=== PATIENT | male | born 1975 ===

== ENCOUNTER 2018-09-02 06:54 | Observation (INO) | payer OTHER ==
[2018-09-02] MEDS ORDERED: Sodium Chloride 0.9% 1,000 ML IV ONE (07:18)
[2018-09-02] MEDS ORDERED: Sodium Chloride 0.9% 1,000 ML ONE (07:23)
[2018-09-02 07:26] LABS: BASO # 0.1 K/uL (0.0-0.2); BASO % 0.7 % (0.0-2.0); EOS # 0.3 K/uL (0.0-0.7); EOS % 2.8 % (0.0-4.0); HEMOGLOBIN 15.7 g/dL (12.0-18.0); LYMPH # 4.3 K/uL (1.0-4.3); LYMPH % 43.3 % (20.0-40.0); MEAN CELL VOLUME 87.1 fL (80.0-94.0); MEAN CORPUSCULAR HEMOGLOBIN 29.1 pg (27.0-31.0); MEAN CORPUSCULAR HGB CONC 33.4 g/dL (33.0-37.0); MEAN PLATELET VOLUME 9.7 fL (7.2-11.7); MONO # 0.7 K/uL (0.0-0.8); MONO % 6.7 % (0.0-10.0); NEUT # 4.7 K/uL (1.8-7.0); NEUT % 46.5 % (50.0-75.0); RBC 5.41 Mil/uL (4.40-5.90); RED CELL DISTRIBUTION WIDTH 13.4 % (11.5-14.5)
[2018-09-02 07:46] LABS: URINE BILIRUBIN NEGATIVE (NEGATIVE); URINE BLOOD NEGATIVE (NEGATIVE); URINE CLARITY Clear (Clear); URINE COLOR Yellow (YELLOW); URINE GLUCOSE (UA) NORMAL (Normal); URINE LEUKOCYTE ESTERASE NEG Leu/uL (Negative); URINE PROTEIN NEGATIVE (NEGATIVE); URINE UROBILINOGEN NORMAL mg/dL (0.2-1.0)
--- NOTE | 2018-09-02 07:46 | C.PDOC ---
History Of Present Illness 43 year old male presents to the ED complaining of LLQ pain radiating to low back that began 30 minutes [employer] T[employer]ATING [employer]. 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 Reports pain is constant, throbbing and is associated with nausea. Denies any vomiting, diarrhea, dysuria, or hematuria. States he feels like he has to strain to urinate. Denies presentation of similar symptoms in the past. Time Seen by Provider: 09/02/18 07:17 Chief Complaint (Nursing): Abdominal Pain History Per: Patient History/Exam Limitations: no limitations Onset/Duration Of Symptoms: Mins (30), Persistent Current Symptoms Are (Timing): Still Present Location Of Pain/Discomfort: LLQ Radiation Of Pain To:: Back Associated Symptoms: denies: Fever, Chills, Nausea, Vomiting, Diarrhea Past Medical History Reviewed: Historical Data, Nursing Documentation, Vital Signs Vital Signs: Last Vital Signs Temp 98.2 F 09/02/18 06:54 Pulse 74 09/02/18 06:54 Resp 16 09/02/18 06:54 BP 179/82 H 09/02/18 06:54 Pulse Ox 100 09/02/18 06:54 Primary Care Provider: FAMILY PROVIDER,NO - Medical History PMH: Hypercholesterolemia Other Surgeries: Hx of surgeries Family History: States: No Known Family Hx - Social History Hx Alcohol Use: Yes Hx Substance Use: No - Immunization History Hx Tetanus Toxoid Vaccination: No Hx Influenza Vaccination: No Hx Pneumococcal Vaccination: No Review Of Systems Except As Marked, All Systems Reviewed And Found Negative. Constitutional: Negative for: Fever, Chills Gastrointestinal: Positive for: Abdominal Pain. Negative for: Nausea, Vomiting, Diarrhea Genitourinary: Negative for: Dysuria, Hematuria Musculoskeletal: Positive for: Back Pain Physical Exam - Physical Exam Appears: Non-toxic, No Acute Distress, Other (appears in moderate to severe pain ) Skin: Warm, Dry, No Rash Head: Normacephalic Eye(s): bilateral: Normal Inspection Neck: Supple Chest: Symmetrical Cardiovascular: Rhythm Regular Respiratory: Normal Breath Sounds, No Rales, No Rhonchi, No Wheezing Gastrointestinal/Abdominal: Bowel Sounds, Soft, Tenderness ((+) LLQ TTP), No Distention, No Guarding, No Rebound Back: Normal Inspection, No CVA Tenderness Male Genital: Normal Inspection, No Testicular Tenderness, No Testicular Swelling, No Inguinal Tenderness, No Inguinal Swelling, No Scrotal Swelling Extremity: Bilateral: Atraumatic, Normal Color And Temperature, Normal ROM Neurological/Psych: Oriented x3, Normal Speech Gait: Steady ED Course And Treatment - Laboratory Results Result Diagrams: 09/02/18 07:10 09/02/18 07:10 O2 Sat by Pulse Oximetry: 100 (RA) Pulse Ox Interpretation: Normal - Other Rad CT ABD/PELVIS NO CONTRAST X-Ray: Read By Radiologist Interpretation: Accession No. : [id number]. Patient Name / ID : MAXIMUS Ramos / [id number]. Exam Date : 09/02/2018 08:14:13 ( Approved ). Study Comment : Sex / Age : M / 43Y. Creator : Deshaun Lugo. Dictator : Emi Rivera MD. Casino Games Dealer : Environmental Health Technician : Emi Ochoa MD. Approver2 : Report Date : 09/02/2018 08:23:41. My Comment : . PROCEDURE: CT Abdomen and Pelvis without Oral or IV contrast. HISTORY: llq pain r/o kidney stone. COMPARISON: None available. TECHNIQUE: Contiguous axial images of the abdomen and pelvis. No oral or IV contrast administered. Coronal and Sagittal reformats generated and reviewed. Radiation dose: Total exam DLP = 1111.92 mGy-cm. This CT exam was performed using one or more of the following dose reduction techniques: Automated exposure control, adjustment of the mA and/or kV according to patient size, and/or use of iterative reconstruction technique. FINDINGS: There is limited evaluation of the solid organs without the administration of IV contrast. LOWER THORAX: Bibasilar atelectasis/infiltrates. There is no visible pleural effusion or pneumothorax. Small hiatal hernia/distal esophageal wall thickening. LIVER: Unremarkable unenhanced appearance. GALLBLADDER AND BILE DUCTS: Unremarkable unenhanced appearance. PANCREAS: Unremarkable unenhanced appearance. SPLEEN: Unremarkable unenhanced appearance. ADRENALS: Unremarkable unenhanced appear ance. KIDNEYS AND URETERS: No hydronephrosis or obstructing renal calculus. BLADDER: The urinary bladder appears unremarkable. REPRODUCTIVE: The prostate gland measures approximately 3.2 x 4.5 cm. APPENDIX: The appendix appears within normal limits of caliber. No secondary signs of acute appendicitis. BOWEL: The stomach is nondistended. Lack of oral contrast limits evaluation for bowel pathology. The bowel loops appear within normal limits of caliber without evidence of intestinal obstruction. Diverticulosis without CT evidence of acute diverticulitis. PERITONEUM: No significant free fluid. No definite free air. LYMPH NODES: No bulky lymphadenopathy identified. VASCULATURE: No significant atherosclerotic calcifications present. No aortic aneurysm. BONES: No acute osseous abnormality is detected. OTHER FINDINGS: 13 x 7 mm ovoid fatty density in the left pelvis with associated peripheral calcification. IMPRESSION: Diverticulosis without CT evidence of acute diverticulitis. No obstructing calculus or hydronephrosis identified. 13 x 7 mm ovoid fatty density in the left pelvis with associated peripheral calcification. Mild bibasilar atelectasis/infiltrates. Small hiatal hernia/distal esophageal wall thickening. Additional findings as above. - CT Scan/US CT PELVIS IV CONTRAST Other Rad Studies (CT/US): Read By Radiologist, Radiology Report Reviewed CT/US Interpretation: Accession No. : [id number]. Patient Name / ID : MAXIMUS MCCLAIN / [id number]. Exam Date : 09/02/2018 11:13:27 ( Approved ). Study Comment : Sex / Age : M / 43Y. Creator : Deshaun Lugo. Dictator : Emi Ochoa MD. Casino Games Dealer : Environmental Health Technician : Emi Ochoa MD. Approver2 : Report Date : 09/02/2018 11:22:44. My Comment : . Date of service: 09/02/2018. PROCEDURE: CT Pelvis with contrast. HISTORY: EVAL PELVIS WITH IV CONTRAST. COMPARISON: CT of the abdomen pelvis without IV contrast performed earlier the same day. TECHNIQUE: Contiguous axial images of the pelvis with contrast. Coronal and sagittal reformats generated. Contrast dose: 100 mL Visipaque 320 IV. Radiation dose: Total exam DLP = 692.9 mGy-cm. This CT exam was performed using one or more of the following dose reduction techniques: Automated exposure control, adjustment of the mA and/or kV according to patient size, and/or use of iterative reconstruction technique. FINDINGS: Visualized bowel loops appear within normal limits of caliber. Mild wall thickening of the rectosigmoid colon may be exaggerated by under distension; correlate clinically to exclude possibility of colitis. Included portions of the appendix appears unremarkable. Diverticulosis without CT evidence of acute diverticulitis. Small ovoid fatty density within the left pelvis measures approximately 13 x 7 mm with associated peripheral calcification, nonspecific. Finding may be related to small area of encapsulated fat necrosis. Urinary bladder appears thick walled; correlate with urinalysis. The prostate gland measures approximately 3.6 x 4.2 cm. IMPRESSION: Mild wall thickening of the rectosigmoid colon may be exaggerated by under distension; correlate clinically to exclude possibility of colitis. Diverticulosis without CT evidence of acute diverticulitis. Small ovoid fatty density within the left pelvis measures approximately 13 x 7 mm with associated peripheral calcification, nonspecific. Finding may be related to small area of encapsulated fat necrosis. Urinary bladder appears thick walled; correlate with urinalysis. Progress Note: Blood work, UA, CT abd/pelvis without contrast ordered and reviewed - to r/o kidney stone. Patient given IV NS bolus, IV toradol. Patient continued to have pain - IV morphine given. Repeat CT with IV contrast of pelvis done, shows thickened colon/bladder and small area of possible fat necrosis - ? etiology of pain. 1:15pm- Patient tearful and in pain again, IV morphine ordered. Discussed patient with medicine combination man Dr. Bassam Gamboa, agrees with admission for intractable LLQ/low back pain, fat necrosis. Surgery consult for Dr. Abilio chirinos and president & founder spoken with - will come eval. Disposition - Disposition Disposition: HOSPITALIZED Disposition Time: 13:09 Condition: STABLE - Scribe Statement The provider has reviewed the documentation as recorded by the Scribmahnaz Talley All medical record entries made by the Scribe were at my direction and personally dictated by me. I have reviewed the chart and agree that the record accurately reflects my personal performance of the history, physical exam, medical decision making, and the department course for this patient. I have also personally directed, reviewed, and agree with the discharge instructions and disposition.
[2018-09-02 08:00] LABS: ALB/GLOB RATIO 1.3 (1.0-2.1); ALBUMIN 4.7 g/dL (3.5-5.0); ALT/SGPT 33 U/L (21-72); AST/SGOT 33 U/L (17-59); BLOOD UREA NITROGEN 20 mg/dL (9-20); CALCIUM 9.5 mg/dl (8.6-10.4); GFR NON-AFRICAN AMERICAN > 60; LIPASE 143 U/L (23-300)
--- NOTE | 2018-09-02 08:52 | CT ---
PROCEDURE: CT Abdomen and Pelvis without Oral or IV contrast. HISTORY: llq pain r/o kidney stone COMPARISON: None available. TECHNIQUE: Contiguous axial images of the abdomen and pelvis. No oral or IV contrast administered. Coronal and Sagittal reformats generated and reviewed. Radiation dose: Total exam DLP = 1111.92 mGy-cm. This CT exam was performed using one or more of the following dose reduction techniques: Automated exposure control, adjustment of the mA and/or kV according to patient size, and/or use of iterative reconstruction technique. FINDINGS: There is limited evaluation of the solid organs without the administration of IV contrast. LOWER THORAX: Bibasilar atelectasis/infiltrates. There is no visible pleural effusion or pneumothorax. Small hiatal hernia/distal esophageal wall thickening. LIVER: Unremarkable unenhanced appearance. GALLBLADDER AND BILE DUCTS: Unremarkable unenhanced appearance. PANCREAS: Unremarkable unenhanced appearance. SPLEEN: Unremarkable unenhanced appearance. ADRENALS: Unremarkable unenhanced appearance. KIDNEYS AND URETERS: No hydronephrosis or obstructing renal calculus. BLADDER: The urinary bladder appears unremarkable. REPRODUCTIVE: The prostate gland measures approximately 3.2 x 4.5 cm. APPENDIX: The appendix appears within normal limits of caliber. No secondary signs of acute appendicitis. BOWEL: The stomach is nondistended. Lack of oral contrast limits evaluation for bowel pathology. The bowel loops appear within normal limits of caliber without evidence of intestinal obstruction. Diverticulosis without CT evidence of acute diverticulitis. PERITONEUM: No significant free fluid. No definite free air. LYMPH NODES: No bulky lymphadenopathy identified. VASCULATURE: No significant atherosclerotic calcifications present. No aortic aneurysm. BONES: No acute osseous abnormality is detected. OTHER FINDINGS: 13 x 7 mm ovoid fatty density in the left pelvis with associated peripheral calcification. IMPRESSION: Diverticulosis without CT evidence of acute diverticulitis. No obstructing calculus or hydronephrosis identified. 13 x 7 mm ovoid fatty density in the left pelvis with associated peripheral calcification. Mild bibasilar atelectasis/infiltrates. Small hiatal hernia/distal esophageal wall thickening. Additional findings as above.
[2018-09-02] MEDS ORDERED: Morphine 4 MG/ML VIAL ONE ×3 (10:00→13:24)
[2018-09-02] MEDS ORDERED: Iodixanol 320 MG/ML 100 ML BOTTLE IV ONE (11:23)
--- NOTE | 2018-09-02 12:07 | CT ---
Date of service: 09/02/2018 PROCEDURE: CT Pelvis with contrast HISTORY: EVAL PELVIS WITH IV CONTRAST COMPARISON: CT of the abdomen pelvis without IV contrast performed earlier the same day. TECHNIQUE: Contiguous axial images of the pelvis with contrast. Coronal and sagittal reformats generated. Contrast dose: 100 mL Visipaque 320 IV Radiation dose: Total exam DLP = 692.9 mGy-cm. This CT exam was performed using one or more of the following dose reduction techniques: Automated exposure control, adjustment of the mA and/or kV according to patient size, and/or use of iterative reconstruction technique. FINDINGS: Visualized bowel loops appear within normal limits of caliber. Mild wall thickening of the rectosigmoid colon may be exaggerated by under distension; correlate clinically to exclude possibility of colitis. Included portions of the appendix appears unremarkable. Diverticulosis without CT evidence of acute diverticulitis. Small ovoid fatty density within the left pelvis measures approximately 13 x 7 mm with associated peripheral calcification, nonspecific. Finding may be related to small area of encapsulated fat necrosis. Urinary bladder appears thick walled; correlate with urinalysis. The prostate gland measures approximately 3.6 x 4.2 cm. IMPRESSION: Mild wall thickening of the rectosigmoid colon may be exaggerated by under distension; correlate clinically to exclude possibility of colitis. Diverticulosis without CT evidence of acute diverticulitis. Small ovoid fatty density within the left pelvis measures approximately 13 x 7 mm with associated peripheral calcification, nonspecific. Finding may be related to small area of encapsulated fat necrosis. Urinary bladder appears thick walled; correlate with urinalysis.
[2018-09-02 13:48] LABS: VENOUS BLOOD GAS PCO2 32 mmHg (40-60); VENOUS BLOOD GAS PO2 43 mm/Hg (30-55); VENOUS BLOOD PH 7.45 (7.32-7.43)
--- NOTE | 2018-09-02 14:33 | CP.PCM.CON ---
<Reynaldo Greco - Last Filed: 09/02/18 14:38> History of Present Illness - History of Present Illness History of Present Illness: Surgery Consult Note for Dr. Santoro Consult: Left sided abdominal pain HPI: 43 year old male with a past medical history of hyperlipidemia, who presents to [facility] with sudden, new onset left flank pain that radiates anteriorly. Initially thought to be nephrolithiasis however CT imaging shows no stones or dilation of ureters. Patient states the pain is sharp, throbbing and constant. 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 He had a mild episode of pain in the area last week which resolved on its own. Patient states no aggravating or alleviating factors. Admits to nausea due to pain medication given in ER. Denies fever, chills, vomiting, diarrhea, BRBPR, melena, hematemesis, SOB, chest pain, hematuria, dysuria, or difficulty with urination. No sick contacts. No recent travel. PMH: HLD PSH: Back surgery 5 months ago FH: Noncontributory SH: Denies tobacco alcohol or drug use. 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 Patient is from [place], [place]. ALL: NKDA Meds: See MAR Review of Systems - Constitutional Constitutional: absent: Chills, Fever, Headache, Night Sweats, Weight Loss, Weakness - EENT Eyes: absent: Blurred Vision, Change in Vision Nose/Mouth/Throat: absent: Nasal Congestion, Nasal Discharge - Cardiovascular Cardiovascular: absent: Chest Pain, Dyspnea, Palpitations - Respiratory Respiratory: absent: Cough, Dyspnea - Gastrointestinal Gastrointestinal: Abdominal Pain. absent: Belching, Bloating, Change in Bowel Habits, Constipation, Cramping, Diarrhea, Heartburn, Hematemesis, Melena, Nausea, Vomiting - Genitourinary Genitourinary: Flank Pain. absent: Change in Urinary Stream, Difficulty Urinating, Dysuria, Hematuria, Pyuria, Freq UTI, Hx Renal/Bladder Calculi, Hx /Renal Surgery - Reproductive: Male Reproductive:Male: Pelvic Pain - Musculoskeletal Musculoskeletal: Back Pain. absent: Neck Pain - Integumentary Integumentary: absent: Bleeding Lesions, Changing Lesions - Neurological Neurological: absent: Confusion, Numbness - Psychiatric Psychiatric: absent: Anxiety, Depression Past Patient History - Infectious Disease Hx of Infectious Diseases: None - Past Social History Smoking Status: Never Smoked - CARDIAC Hx Hypercholesterolemia: Yes - PSYCHIATRIC Hx Substance Use: No - SURGICAL HISTORY Hx Surgeries: Yes Other/Comment: lower back sx 5mos ago - ANESTHESIA Hx Anesthesia: Yes Meds Allergies/Adverse Reactions: Allergies Allergy/AdvReac Type Severity Reaction Status Date / Time No Known Allergies Allergy Unverified 09/02/18 06:57 - Medications Medications: Current Medications Morphine Sulfate (Morphine) 4 mg IV Q4 PRN PRN Reason: pain Physical Exam - Constitutional Appears: Non-toxic, In Acute Distress - Head Exam Head Exam: ATRAUMATIC, NORMAL INSPECTION, NORMOCEPHALIC - Eye Exam Eye Exam: EOMI Pupil Exam: PERRL - ENT Exam ENT Exam: Mucous Membranes Moist - Respiratory Exam Respiratory Exam: NORMAL BREATHING PATTERN. absent: Wheezes, Respiratory Distress - Cardiovascular Exam Cardiovascular Exam: REGULAR RHYTHM, +S1, +S2 - GI/Abdominal Exam GI & Abdominal Exam: Normal Bowel Sounds, Soft, Tenderness. absent: Distended, Guarding, Rebound, Rigid Additional comments: left flank and lower quadrant tenderness to palpation - Extremities Exam Extremities exam: Positive for: normal inspection, pedal pulses present - Back Exam Back exam: paraspinal tenderness. absent: CVA tenderness (L), CVA tenderness (R), rash noted - Neurological Exam Neurological exam: Alert, Oriented x3 - Psychiatric Exam Psychiatric exam: Normal Affect, Normal Mood - Skin Skin Exam: Dry, Intact, Normal Color, Warm Results - Vital Signs Recent Vital Signs: Last Vital Signs Temp 98.3 F 09/02/18 14:16 Pulse 74 09/02/18 14:16 Resp 16 09/02/18 14:16 BP 148/82 09/02/18 14:16 Pulse Ox 98 09/02/18 14:16 - Labs Result Diagrams: 09/02/18 07:10 09/02/18 07:10 Labs: Laboratory Results - last 24 hr 09/02/18 09/02/18 09/02/18 07:10 07:10 07:24 WBC 10.0 RBC 5.41 Hgb 15.7 Hct 47.1 MCV 87.1 MCH 29.1 MCHC 33.4 RDW 13.4 Plt Count 253 MPV 9.7 Neut % (Auto) 46.5 L Lymph % (Auto) 43.3 H [place] % (Auto) 6.7 Eos % (Auto) 2.8 Baso % (Auto) 0.7 Neut # (Auto) 4.7 Lymph # (Auto) 4.3 [place] # (Auto) 0.7 Eos # (Auto) 0.3 Baso # (Auto) 0.1 pO2 VBG pH VBG pCO2 VBG HCO3 VBG Total CO2 VBG O2 Sat (Calc) VBG Base Excess VBG Potassium Glucose Lactate Sodium 140 Potassium 3.5 L Chloride 105 Carbon Dioxide 21 L Anion Gap 18 BUN 20 Creatinine 1.1 Est GFR ( Amer) > 60 Est GFR (Non-Af Amer) > 60 Random Glucose 106 Calcium 9.5 Total Bilirubin 0.8 AST 33 ALT 33 Alkaline Phosphatase 91 Total Protein 8.4 H Albumin 4.7 Globulin 3.7 Albumin/Globulin Ratio 1.3 Lipase 143 Venous Blood Potassium Urine Color Yellow Urine Clarity Clear Urine pH 5.0 Ur Specific [place] 1.023 Urine Protein Negative Urine Glucose (UA) Normal Urine Ketones Negative Urine Blood Negative Urine Nitrate Negative Urine Bilirubin Negative Urine Urobilinogen Normal Ur Leukocyte Esterase Neg Urine WBC (Auto) 1 Urine RBC (Auto) < 1 09/02/18 13:35 WBC RBC Hgb Hct MCV MCH MCHC RDW Plt Count MPV Neut % (Auto) Lymph % (Auto) [place] % (Auto) Eos % (Auto) Baso % (Auto) Neut # (Auto) Lymph # (Auto) [place] # (Auto) Eos # (Auto) Baso # (Auto) pO2 43 VBG pH 7.45 H VBG pCO2 32 L VBG HCO3 23.7 VBG Total CO2 23.2 VBG O2 Sat (Calc) 85.5 H VBG Base Excess -1.0 L VBG Potassium 3.9 Glucose 110 Lactate 1.2 Sodium 136.0 Potassium Chloride 107.0 Carbon Dioxide Anion Gap BUN Creatinine Est GFR ( Amer) Est GFR (Non-Af Amer) Random Glucose Calcium Total Bilirubin AST ALT Alkaline Phosphatase Total Protein Albumin Globulin Albumin/Globulin Ratio Lipase Venous Blood Potassium 3.9 Urine Color Urine Clarity Urine pH Ur Specific [place] Urine Protein Urine Glucose (UA) Urine Ketones Urine Blood Urine Nitrate Urine Bilirubin Urine Urobilinogen Ur Leukocyte Esterase Urine WBC (Auto) Urine RBC (Auto) Assessment & Plan - Assessment and Plan (Free Text) Assessment: 43M w/ left flank and lower quadrant abdominal pain Plan: CTAP shows ovoid fatty density in pelvis, diverticulosis Pelvic CT shows possible encapsulated fat necrosis Pain control Antiemetics PRN Warm compresses Serial abdominal exams Monitor for clinical improvement D/w Dr. Doherty PGY1 <Wally Cohn N - Last Filed: 09/03/18 12:21> Meds - Medications Medications: Current Medications Enoxaparin Sodium (Lovenox) 40 mg SC DAILY [facility] Last Admin: 09/03/18 10:29 Dose: 40 mg Sodium Chloride (Sodium Chloride 0.9%) 1,000 mls @ 125 mls/hr IV .Q8H [facility] Last Admin: 09/03/18 06:59 Dose: 125 mls/hr Piperacillin Sod/Tazobactam Sod (Zosyn 3.375 Gm Iv Premix) 3.375 gm in 50 mls @ 100 mls/hr IVPB Q6H [facility]; Protocol Last Admin: 09/03/18 11:56 Dose: 100 mls/hr Morphine Sulfate (Morphine) 6 mg IV Q4 PRN PRN Reason: pain Ondansetron HCl (Zofran Inj) 4 mg IVP Q6H PRN PRN Reason: Nausea/Vomiting Last Admin: 09/03/18 08:25 Dose: 4 mg Pantoprazole Sodium (Protonix Ec Tab) 40 mg PO DAILY [facility] Last Admin: 09/03/18 10:30 Dose: 40 mg Pneumococcal Polyvalent Vaccine (Pneumovax 23 Vaccine) 0.5 ml IM .ONCE ONE Stop: 09/04/18 10:01 Potassium Chloride (Klor-Con 10) 10 meq PO BRK [facility] Last Admin: 09/03/18 08:26 Dose: 10 meq Rosuvastatin Calcium (Crestor) 5 mg PO HS [facility] Last Admin: 09/02/18 21:51 Dose: 5 mg Tamsulosin HCl (Flomax) 0.4 mg PO DAILY [facility] Last Admin: 09/03/18 11:34 Dose: 0.4 mg Results - Vital Signs Recent Vital Signs: Last Vital Signs Temp 98.1 F 09/03/18 07:00 Pulse 72 09/03/18 07:00 Resp 20 09/03/18 07:00 BP 144/79 09/03/18 07:00 Pulse Ox 95 09/03/18 07:00 - Labs Result Diagrams: 09/03/18 08:09 09/03/18 08:09 Labs: Laboratory Results - last 24 hr 09/02/18 09/03/18 09/03/18 13:35 08:09 08:09 WBC 14.9 H RBC 4.80 Hgb 14.2 Hct 40.7 MCV 84.8 D MCH 29.7 MCHC 35.0 RDW 13.3 Plt Count 219 MPV 10.6 Neut % (Auto) 79.4 H Lymph % (Auto) 12.6 L [place] % (Auto) 7.5 Eos % (Auto) 0.2 Baso % (Auto) 0.3 Neut # (Auto) 11.8 H Lymph # (Auto) 1.9 [place] # (Auto) 1.1 H Eos # (Auto) 0.0 Baso # (Auto) 0.0 pO2 43 VBG pH 7.45 H VBG pCO2 32 L VBG HCO3 23.7 VBG Total CO2 23.2 VBG O2 Sat (Calc) 85.5 H VBG Base Excess -1.0 L VBG Potassium 3.9 Sodium 136.0 136 Chloride 107.0 103 Glucose 110 Lactate 1.2 Potassium 4.0 Carbon Dioxide 24 Anion Gap 13 BUN 16 Creatinine 1.3 Est GFR ( Amer) > 60 Est GFR (Non-Af Amer) > 60 Random Glucose 98 Calcium 8.9 Total Bilirubin 1.5 H AST 67 H D ALT 67 Alkaline Phosphatase 72 Total Protein 7.0 Albumin 3.9 Globulin 3.1 Albumin/Globulin Ratio 1.3 Prostate Specific Ag 0.691 Venous Blood Potassium 3.9 Assessment & Plan - Assessment and Plan (Free Text) Plan: All medical record entries made by the resident were at my direction. I have reviewed the chart and agree that the record accurately reflects my personal performance of the history, physical exam, and medical decision making.
[2018-09-02] MEDS: Sodium Chloride 0.9% 1,000 ML IV SCH ×2 (15:30→22:06)
[2018-09-02 15:56] VITALS: RESP 20
[2018-09-02] MEDS: Morphine 4 MG/ML VIAL IV PRN (17:57)
[2018-09-02] MEDS ORDERED: Potassium Chloride 20 mEq ER Tab PO ONE (18:37)
--- NOTE | 2018-09-02 23:21 | CP.PCM.HP ---
Past Patient History - Infectious Disease Hx of Infectious Diseases: None - Past Social History Smoking Status: Never Smoked - CARDIAC Hx Hypercholesterolemia: Yes - PSYCHIATRIC Hx Substance Use: No - SURGICAL HISTORY Hx Surgeries: Yes Other/Comment: lower back sx 5mos ago - ANESTHESIA Hx Anesthesia: Yes Meds Allergies/Adverse Reactions: Allergies Allergy/AdvReac Type Severity Reaction Status Date / Time No Known Allergies Allergy Unverified 09/02/18 06:57 Physical Exam - Constitutional Appears: Well - Head Exam Head Exam: ATRAUMATIC, NORMAL INSPECTION, NORMOCEPHALIC - Eye Exam Eye Exam: EOMI, Normal appearance, PERRL Pupil Exam: NORMAL ACCOMODATION, PERRL - ENT Exam ENT Exam: Mucous Membranes Moist, Normal Exam - Neck Exam Neck exam: Positive for: Normal Inspection - Respiratory Exam Respiratory Exam: Decreased Breath Sounds - Cardiovascular Exam Cardiovascular Exam: REGULAR RHYTHM, +S1, +S2 - GI/Abdominal Exam GI & Abdominal Exam: Diminished Bowel Sounds, Soft - Rectal Exam Rectal Exam: Deferred - Neurological Exam Neurological exam: Oriented x3 Results - Vital Signs Recent Vital Signs: Last Vital Signs Temp 98 F 09/02/18 19:34 Pulse 77 09/02/18 19:34 Resp 20 09/02/18 19:34 BP 144/81 09/02/18 19:34 Pulse Ox 97 09/02/18 19:34 - Labs Result Diagrams: 09/02/18 07:10 09/02/18 07:10 Labs: Laboratory Results - last 24 hr 09/02/18 09/02/18 09/02/18 07:10 07:10 07:24 WBC 10.0 RBC 5.41 Hgb 15.7 Hct 47.1 MCV 87.1 MCH 29.1 MCHC 33.4 RDW 13.4 Plt Count 253 MPV 9.7 Neut % (Auto) 46.5 L Lymph % (Auto) 43.3 H [place] % (Auto) 6.7 Eos % (Auto) 2.8 Baso % (Auto) 0.7 Neut # (Auto) 4.7 Lymph # (Auto) 4.3 [place] # (Auto) 0.7 Eos # (Auto) 0.3 Baso # (Auto) 0.1 pO2 VBG pH VBG pCO2 VBG HCO3 VBG Total CO2 VBG O2 Sat (Calc) VBG Base Excess VBG Potassium Glucose Lactate Sodium 140 Potassium 3.5 L Chloride 105 Carbon Dioxide 21 L Anion Gap 18 BUN 20 Creatinine 1.1 Est GFR ( Amer) > 60 Est GFR (Non-Af Amer) > 60 Random Glucose 106 Calcium 9.5 Total Bilirubin 0.8 AST 33 ALT 33 Alkaline Phosphatase 91 Total Protein 8.4 H Albumin 4.7 Globulin 3.7 Albumin/Globulin Ratio 1.3 Lipase 143 Venous Blood Potassium Urine Color Yellow Urine Clarity Clear Urine pH 5.0 Ur Specific [place] 1.023 Urine Protein Negative Urine Glucose (UA) Normal Urine Ketones Negative Urine Blood Negative Urine Nitrate Negative Urine Bilirubin Negative Urine Urobilinogen Normal Ur Leukocyte Esterase Neg Urine WBC (Auto) 1 Urine RBC (Auto) < 1 09/02/18 13:35 WBC RBC Hgb Hct MCV MCH MCHC RDW Plt Count MPV Neut % (Auto) Lymph % (Auto) [place] % (Auto) Eos % (Auto) Baso % (Auto) Neut # (Auto) Lymph # (Auto) [place] # (Auto) Eos # (Auto) Baso # (Auto) pO2 43 VBG pH 7.45 H VBG pCO2 32 L VBG HCO3 23.7 VBG Total CO2 23.2 VBG O2 Sat (Calc) 85.5 H VBG Base Excess -1.0 L VBG Potassium 3.9 Glucose 110 Lactate 1.2 Sodium 136.0 Potassium Chloride 107.0 Carbon Dioxide Anion Gap BUN Creatinine Est GFR ( Amer) Est GFR (Non-Af Amer) Random Glucose Calcium Total Bilirubin AST ALT Alkaline Phosphatase Total Protein Albumin Globulin Albumin/Globulin Ratio Lipase Venous Blood Potassium 3.9 Urine Color Urine Clarity Urine pH Ur Specific [place] Urine Protein Urine Glucose (UA) Urine Ketones Urine Blood Urine Nitrate Urine Bilirubin Urine Urobilinogen Ur Leukocyte Esterase Urine WBC (Auto) Urine RBC (Auto)
[2018-09-03] MEDS: Morphine 4 MG/ML VIAL IV PRN ×2 (02:33→08:25)
[2018-09-03] MEDS: Sodium Chloride 0.9% 1,000 ML IV SCH ×2 (06:59→14:37)
--- NOTE | 2018-09-03 07:20 | CP.PCM.PN ---
<Reynaldo Greco - Last Filed: 09/03/18 07:17> Subjective - Date & Time of Evaluation Date of Evaluation: 09/03/18 Time of Evaluation: 07:17 - Subjective Subjective: Surgery Progress Note for Dr. Santoro 43M seen and evaluated at bedside this morning. No acute events overnight. Patient continues to complain of left flank pain. No difficulty with urination, no hematuria, no dysuria, no pyuria. Denies f/c, n/v/d, SOB, CP. Objective - Vital Signs/Intake and Output Vital Signs (last 24 hours): Temp Pulse Resp BP Pulse Ox 98.1 F 70 20 139/70 96 09/03/18 00:42 09/03/18 00:42 09/03/18 00:42 09/03/18 00:42 09/03/18 03:30 Intake and Output: 09/03/18 09/03/18 06:59 18:59 Intake Total 2150 Balance 2150 - Medications Medications: Current Medications Enoxaparin Sodium (Lovenox) 40 mg SC DAILY [facility] Sodium Chloride (Sodium Chloride 0.9%) 1,000 mls @ 125 mls/hr IV .Q8H [facility] Last Admin: 09/03/18 06:59 Dose: 125 mls/hr Morphine Sulfate (Morphine) 4 mg IV Q4 PRN PRN Reason: pain Last Admin: 09/03/18 02:33 Dose: 4 mg Ondansetron HCl (Zofran Inj) 4 mg IVP Q6H PRN PRN Reason: Nausea/Vomiting Pantoprazole Sodium (Protonix Ec Tab) 40 mg PO DAILY [facility] Pneumococcal Polyvalent Vaccine (Pneumovax 23 Vaccine) 0.5 ml IM .ONCE ONE Stop: 09/04/18 10:01 Potassium Chloride (Klor-Con 10) 10 meq PO BRK [facility] Rosuvastatin Calcium (Crestor) 5 mg PO HS [facility] Last Admin: 09/02/18 21:51 Dose: 5 mg Tamsulosin HCl (Flomax) 0.4 mg PO DAILY [facility] Last Admin: 09/02/18 21:51 Dose: 0.4 mg - Labs Labs: 09/02/18 07:10 09/02/18 07:10 - Constitutional Appears: Non-toxic, No Acute Distress - Head Exam Head Exam: ATRAUMATIC, NORMAL INSPECTION, NORMOCEPHALIC - Eye Exam Eye Exam: EOMI Pupil Exam: PERRL - ENT Exam ENT Exam: Mucous Membranes Moist - Respiratory Exam Respiratory Exam: NORMAL BREATHING PATTERN. absent: Wheezes, Respiratory Distress - Cardiovascular Exam Cardiovascular Exam: REGULAR RHYTHM, +S1, +S2. absent: Murmur - GI/Abdominal Exam GI & Abdominal Exam: Soft, Normal Bowel Sounds. absent: Tenderness - Exam Exam: absent: Scrotal Swelling, Testicular Tenderness, Uretheral Discharge External exam: absent: Ecchymosis, Erythema, Lesions - Extremities Exam Extremities Exam: Normal Inspection - Back Exam Back Exam: CVA tenderness (L), paraspinal tenderness. absent: CVA tenderness (R), rash noted - Neurological Exam Neurological Exam: Alert, Awake, Oriented x3 - Psychiatric Exam Psychiatric exam: Normal Affect, Normal Mood - Skin Skin Exam: Dry, Intact, Normal Color, Warm Assessment and Plan - Assessment and Plan (Free Text) Assessment: 43M w/ left flank pain Plan: Analgesis PRN Continue warm compresses FU urology recommendations FU GI recommendations No acute surgical intervention at this present time D/w Dr. Doherty PGY1 <Wally Cohn - Last Filed: 09/03/18 12:18> Objective - Vital Signs/Intake and Output Vital Signs (last 24 hours): Temp Pulse Resp BP Pulse Ox 98.1 F 72 20 144/79 95 09/03/18 07:00 09/03/18 07:00 09/03/18 07:00 09/03/18 07:00 09/03/18 07:00 Intake and Output: 09/03/18 09/03/18 06:59 18:59 Intake Total 2150 Balance 2150 - Medications Medications: Current Medications Enoxaparin Sodium (Lovenox) 40 mg SC DAILY [facility] Last Admin: 09/03/18 10:29 Dose: 40 mg Sodium Chloride (Sodium Chloride 0.9%) 1,000 mls @ 125 mls/hr IV .Q8H [facility] Last Admin: 09/03/18 06:59 Dose: 125 mls/hr Piperacillin Sod/Tazobactam Sod (Zosyn 3.375 Gm Iv Premix) 3.375 gm in 50 mls @ 100 mls/hr IVPB Q6H [facility]; Protocol Last Admin: 09/03/18 11:56 Dose: 100 mls/hr Morphine Sulfate (Morphine) 6 mg IV Q4 PRN PRN Reason: pain Ondansetron HCl (Zofran Inj) 4 mg IVP Q6H PRN PRN Reason: Nausea/Vomiting Last Admin: 09/03/18 08:25 Dose: 4 mg Pantoprazole Sodium (Protonix Ec Tab) 40 mg PO DAILY [facility] Last Admin: 09/03/18 10:30 Dose: 40 mg Pneumococcal Polyvalent Vaccine (Pneumovax 23 Vaccine) 0.5 ml IM .ONCE ONE Stop: 09/04/18 10:01 Potassium Chloride (Klor-Con 10) 10 meq PO BRK [facility] Last Admin: 09/03/18 08:26 Dose: 10 meq Rosuvastatin Calcium (Crestor) 5 mg PO HS [facility] Last Admin: 09/02/18 21:51 Dose: 5 mg Tamsulosin HCl (Flomax) 0.4 mg PO DAILY [facility] Last Admin: 09/03/18 11:34 Dose: 0.4 mg - Labs Labs: 09/03/18 08:09 09/03/18 08:09 Assessment and Plan - Assessment and Plan (Free Text) Plan: All medical record entries made by the resident were at my direction. I have reviewed the chart and agree that the record accurately reflects my personal performance of the history, physical exam, and medical decision making.
[2018-09-03] MEDS ORDERED: Potassium Chloride 10 mEq ER Tab PO SCH (08:00)
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
[2018-09-03 08:20] LABS: BASO % 0.3 % (0.0-2.0); EOS % 0.2 % (0.0-4.0); HEMOGLOBIN 14.2 g/dL (12.0-18.0); LYMPH # 1.9 K/uL (1.0-4.3); LYMPH % 12.6 % (20.0-40.0); MEAN CORPUSCULAR HEMOGLOBIN 29.7 pg (27.0-31.0); MEAN PLATELET VOLUME 10.6 fL (7.2-11.7); MONO # 1.1 K/uL (0.0-0.8); MONO % 7.5 % (0.0-10.0); NEUT # 11.8 K/uL (1.8-7.0); NEUT % 79.4 % (50.0-75.0); RBC 4.8 Mil/uL (4.40-5.90); RED CELL DISTRIBUTION WIDTH 13.3 % (11.5-14.5); WHITE BLOOD COUNT 14.9 K/uL (4.8-10.8)
[2018-09-03 08:35] LABS: ALB/GLOB RATIO 1.3 (1.0-2.1); ALBUMIN 3.9 g/dL (3.5-5.0); ALT/SGPT 67 U/L (21-72); AST/SGOT 67 U/L (17-59); BLOOD UREA NITROGEN 16 mg/dL (9-20); CALCIUM 8.9 mg/dl (8.6-10.4); GFR NON-AFRICAN AMERICAN > 60
[2018-09-03 08:44] LABS: MEAN CELL VOLUME 84.8 fL (80.0-94.0)
[2018-09-03] MEDS ORDERED: Pantoprazole 40 mg EC Tab PO SCH (10:00)
[2018-09-03] MEDS ORDERED: Enoxaparin 40 mg Syringe SC SCH (10:00)
[2018-09-03] MEDS ORDERED: Piperacill/Tazo 3.375gm in Dex 3.375 GM/50 ML BAG IVPB SCH (11:00)
--- NOTE | 2018-09-03 11:09 | CP.PCM.PN ---
Subjective - Date & Time of Evaluation Date of Evaluation: 09/03/18 - Subjective Subjective: no c/o vomiting, no diarrhea, no fever Objective - Vital Signs/Intake and Output Vital Signs (last 24 hours): Temp Pulse Resp BP Pulse Ox 98.1 F 72 20 144/79 95 09/03/18 07:00 09/03/18 07:00 09/03/18 07:00 09/03/18 07:00 09/03/18 07:00 Intake and Output: 09/03/18 09/03/18 06:59 18:59 Intake Total 2150 Balance 2150 - Medications Medications: Current Medications Enoxaparin Sodium (Lovenox) 40 mg SC DAILY [facility] Last Admin: 09/03/18 10:29 Dose: 40 mg Sodium Chloride (Sodium Chloride 0.9%) 1,000 mls @ 125 mls/hr IV .Q8H [facility] Last Admin: 09/03/18 06:59 Dose: 125 mls/hr Piperacillin Sod/Tazobactam Sod (Zosyn 3.375 Gm Iv Premix) 3.375 gm in 50 mls @ 100 mls/hr IVPB Q6H [facility]; Protocol Morphine Sulfate (Morphine) 4 mg IV Q4 PRN PRN Reason: pain Last Admin: 09/03/18 08:25 Dose: 4 mg Ondansetron HCl (Zofran Inj) 4 mg IVP Q6H PRN PRN Reason: Nausea/Vomiting Last Admin: 09/03/18 08:25 Dose: 4 mg Pantoprazole Sodium (Protonix Ec Tab) 40 mg PO DAILY [facility] Last Admin: 09/03/18 10:30 Dose: 40 mg Pneumococcal Polyvalent Vaccine (Pneumovax 23 Vaccine) 0.5 ml IM .ONCE ONE Stop: 09/04/18 10:01 Potassium Chloride (Klor-Con 10) 10 meq PO BRK [facility] Last Admin: 09/03/18 08:26 Dose: 10 meq Rosuvastatin Calcium (Crestor) 5 mg PO HS [facility] Last Admin: 09/02/18 21:51 Dose: 5 mg Tamsulosin HCl (Flomax) 0.4 mg PO DAILY [facility] Last Admin: 09/02/18 21:51 Dose: 0.4 mg - Labs Labs: 09/03/18 08:09 09/03/18 08:09 Assessment and Plan - Assessment and Plan (Free Text) Plan: WBC 14.9 Lovenox Zosyn Morphine Zofran Protonix Pneumovax 23 Klor-Con Crestor Flomax Moderate to high complexity of care. Plan of care discussed with patient &/or family & staff. Medications reviewed and reconciled. Labs reviewed. Vitals reviewed.
[2018-09-03] MEDS ORDERED: Morphine 4 MG/ML VIAL IV PRN (11:45)
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
--- NOTE | 2018-09-03 15:04 | CP.PCM.CON ---
History of Present Illness - History of Present Illness History of Present Illness: seen on rounds no new complaints orders written IV rx renewed 43 year old male with a past medical history of hyperlipidemia, who presents to [facility] (formerly [facility]) with left flank pain that radiates anteriorly. Initially thought to be nephrolithiasis however CT imaging shows no stones or dilation of ureters. Patient states the pain is sharp, throbbing and constant. 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 Patient is from [place], [place]. ALL: NKDA Meds: See MAR Review of Systems - Constitutional Constitutional: absent: Chills, Fever, Headache, Night Sweats, Weight Loss, Weakness - EENT Eyes: absent: Blurred Vision, Change in Vision Nose/Mouth/Throat: absent: Nasal Congestion, Nasal Discharge - Cardiovascular Cardiovascular: absent: Chest Pain, Dyspnea, Palpitations - Respiratory Respiratory: absent: Cough, Dyspnea - Gastrointestinal Gastrointestinal: Abdominal Pain. absent: Belching, Bloating, Change in Bowel Habits, Constipation, Cramping, Diarrhea, Heartburn, Hematemesis, Melena, Nausea, Vomiting - Genitourinary Genitourinary: Flank Pain. absent: Change in Urinary Stream, Difficulty Urinating, Dysuria, Hematuria, Pyuria, Freq UTI, Hx Renal/Bladder Calculi, Hx /Renal Surgery - Reproductive: Male Reproductive:Male: Pelvic Pain - Musculoskeletal Musculoskeletal: Back Pain. absent: Neck Pain - Integumentary Integumentary: absent: Bleeding Lesions, Changing Lesions - Neurological Neurological: absent: Confusion, Numbness - Psychiatric Psychiatric: absent: Anxiety, Depression Past Patient History - Infectious Disease Hx of Infectious Diseases: None - Past Social History Smoking Status: Never Smoked - CARDIAC Hx Hypercholesterolemia: Yes - PSYCHIATRIC Hx Substance Use: No - SURGICAL HISTORY Hx Surgeries: Yes Other/Comment: lower back sx 5mos ago - ANESTHESIA Hx Anesthesia: Yes Meds Allergies/Adverse Reactions: Allergies Allergy/AdvReac Type Severity Reaction Status Date / Time No Known Allergies Allergy Unverified 09/02/18 06:57 - Medications Medications: Current Medications Enoxaparin Sodium (Lovenox) 40 mg SC DAILY [facility] Last Admin: 09/03/18 10:29 Dose: 40 mg Sodium Chloride (Sodium Chloride 0.9%) 1,000 mls @ 125 mls/hr IV .Q8H [facility] Last Admin: 09/03/18 14:37 Dose: Not Given Piperacillin Sod/Tazobactam Sod (Zosyn 3.375 Gm Iv Premix) 3.375 gm in 50 mls @ 100 mls/hr IVPB Q6H [facility]; Protocol Last Admin: 09/03/18 11:56 Dose: 100 mls/hr Morphine Sulfate (Morphine) 6 mg IV Q4 PRN PRN Reason: pain Last Admin: 09/03/18 12:54 Dose: 6 mg Ondansetron HCl (Zofran Inj) 4 mg IVP Q6H PRN PRN Reason: Nausea/Vomiting Last Admin: 09/03/18 08:25 Dose: 4 mg Pantoprazole Sodium (Protonix Ec Tab) 40 mg PO DAILY [facility] Last Admin: 09/03/18 10:30 Dose: 40 mg Pneumococcal Polyvalent Vaccine (Pneumovax 23 Vaccine) 0.5 ml IM .ONCE ONE Stop: 09/04/18 10:01 Potassium Chloride (Klor-Con 10) 10 meq PO BRK [facility] Last Admin: 09/03/18 08:26 Dose: 10 meq Rosuvastatin Calcium (Crestor) 5 mg PO HS [facility] Last Admin: 09/02/18 21:51 Dose: 5 mg Tamsulosin HCl (Flomax) 0.4 mg PO DAILY [facility] Last Admin: 09/03/18 11:34 Dose: 0.4 mg Physical Exam - Constitutional Appears: Non-toxic, In Acute Distress, Chronically Ill - Head Exam Head Exam: ATRAUMATIC, NORMAL INSPECTION, NORMOCEPHALIC - Eye Exam Eye Exam: EOMI, Normal appearance, PERRL Pupil Exam: NORMAL ACCOMODATION, PERRL - ENT Exam ENT Exam: Mucous Membranes Moist, Normal Exam - Neck Exam Neck exam: Positive for: Normal Inspection - Respiratory Exam Respiratory Exam: Clear to Auscultation Bilateral, NORMAL BREATHING PATTERN - Cardiovascular Exam Cardiovascular Exam: REGULAR RHYTHM - GI/Abdominal Exam GI & Abdominal Exam: Normal Bowel Sounds, Soft. absent: Tenderness - Rectal Exam Rectal Exam: Deferred - Exam Exam: NORMAL INSPECTION - Extremities Exam Extremities exam: Positive for: normal inspection - Back Exam Back exam: CVA tenderness (L) (x), NORMAL INSPECTION, paraspinal tenderness, tenderness. absent: CVA tenderness (R) (x), vertebral tenderness - Neurological Exam Neurological exam: Alert, CN II-XII Intact, Normal Gait, Oriented x3, Reflexes Normal - Psychiatric Exam Psychiatric exam: Normal Affect, Normal Mood - Skin Skin Exam: Dry, Intact, Normal Color, Warm Results - Vital Signs Recent Vital Signs: Last Vital Signs Temp 98.1 F 09/03/18 07:00 Pulse 72 09/03/18 07:00 Resp 20 09/03/18 07:00 BP 116/64 09/03/18 13:02 Pulse Ox 93 L 09/03/18 13:02 - Labs Result Diagrams: 09/03/18 08:09 09/03/18 08:09 Labs: Laboratory Results - last 24 hr 09/03/18 09/03/18 08:09 08:09 WBC 14.9 H RBC 4.80 Hgb 14.2 Hct 40.7 MCV 84.8 D MCH 29.7 MCHC 35.0 RDW 13.3 Plt Count 219 MPV 10.6 Neut % (Auto) 79.4 H Lymph % (Auto) 12.6 L [place] % (Auto) 7.5 Eos % (Auto) 0.2 Baso % (Auto) 0.3 Neut # (Auto) 11.8 H Lymph # (Auto) 1.9 [place] # (Auto) 1.1 H Eos # (Auto) 0.0 Baso # (Auto) 0.0 Sodium 136 Potassium 4.0 Chloride 103 Carbon Dioxide 24 Anion Gap 13 BUN 16 Creatinine 1.3 Est GFR ( Amer) > 60 Est GFR (Non-Af Amer) > 60 Random Glucose 98 Calcium 8.9 Total Bilirubin 1.5 H AST 67 H D ALT 67 Alkaline Phosphatase 72 Total Protein 7.0 Albumin 3.9 Globulin 3.1 Albumin/Globulin Ratio 1.3 Prostate Specific Ag 0.691 Assessment & Plan - Assessment and Plan (Free Text) Assessment: 43 year old male with a past medical history of hyperlipidemia, who presents to [facility] (formerly [facility]) with left flank pain that radiates anteriorly. Initially thought to be nephrolithiasis however CT imaging shows no stones or dilation of ureters. Patient states the pain is sharp, throbbing and constant. 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
--- NOTE | 2018-09-03 16:21 | CP.PCM.PCO ---
Physician Communication Note - Physician Communication Note Physician Communication Note: Patient signed out AMA
[2018-09-03 16:37] VITALS: BP 130/79; PULSE 83; TEMP 100.7; O2SAT 97
--- NOTE | 2018-09-03 17:06 | US ---
HISTORY: abdominal pain, elevated LFTs COMPARISON: CT of the abdomen and pelvis without contrast performed 09/02/18, CT of the pelvis with contrast performed 09/02/18 TECHNIQUE: Sonographic evaluation of the abdomen. FINDINGS: LIVER: Measures 13.8 cm in sagittal dimension. Echogenic liver may be seen in setting of hepatic parenchymal disease or fatty infiltration. No focal hepatic mass identified. The main portal vein appears patent with normal directional flow. No intrahepatic bile duct dilatation. GALLBLADDER: No gallstones. No gallbladder wall thickening. Negative sonographic Johnson's sign as assessed by the reprographics technician. COMMON BILE DUCT: Measures 4 mm. PANCREAS: Not well visualized. RIGHT KIDNEY: Measures 10.9 x 5.6 x 5.3 cm. No obstructing calculus or hydronephrosis identified. LEFT KIDNEY: Measures 10.1 x 5.6 x 5.8 cm. No obstructing calculus or hydronephrosis identified. SPLEEN: Measures approximately 9.8 cm. AORTA: Limited views appear unremarkable. IVC: Limited views appear unremarkable. OTHER FINDINGS: None. IMPRESSION: Echogenic liver may be seen in setting of hepatic parenchymal disease or fatty infiltration.
--- NOTE | 2018-09-03 21:38 | CP.PCM.DIS ---
Provider - Provider Date of Admission: 09/02/18 13:09 Attending physician: Kwaku Gamboa MD Consults: 09/02/18 13:10 Physician Consult Stat Comment: LLQ PAIN, FAT NECROSIS Consulting Provider: Wally Cohn Consulting Physician: Wally Cohn Reason for Consult: GEN SURG 09/02/18 18:37 Gastroenterology Consult Routine Comment: Consulting Provider: Edgard Dia Consulting Physician: Edgard Dia Reason for Consult: sharp LLQ pain 09/02/18 20:24 Urology Consult Routine Comment: Consulting Provider: Imelda Saucedo Consulting Physician: Imelda Saucedo Reason for Consult: urinary pain, hematuria, difficulty voiding 09/03/18 11:31 Infectious Disease Consult Routine Comment: Consulting Provider: Parish Ahumada Consulting Physician: Parish Ahumada Reason for Consult: abd pain 09/03/18 12:09 Anesthesiology Consult Routine Comment: Consulting Provider: Chris Iqbal Consulting Physician: Chris Iqbal Reason for Consult: pain management Hospital Course - Lab Results Lab Results: Micro Results 09/02/18 13:21 Urine,Snyder Urine Culture - Final No Growth (<1,000 CFU/ML) Most Recent Lab Values WBC 14.9 K/uL (4.8-10.8) H 09/03/18 08:09 RBC 4.80 Mil/uL (4.40-5.90) 09/03/18 08:09 Hgb 14.2 g/dL (12.0-18.0) 09/03/18 08:09 Hct 40.7 % (35.0-51.0) 09/03/18 08:09 MCV 84.8 fL (80.0-94.0) D 09/03/18 08:09 MCH 29.7 pg (27.0-31.0) 09/03/18 08:09 MCHC 35.0 g/dL (33.0-37.0) 09/03/18 08:09 RDW 13.3 % (11.5-14.5) 09/03/18 08:09 Plt Count 219 K/uL (130-400) 09/03/18 08:09 MPV 10.6 fL (7.2-11.7) 09/03/18 08:09 Neut % (Auto) 79.4 % (50.0-75.0) H 09/03/18 08:09 Lymph % (Auto) 12.6 % (20.0-40.0) L 09/03/18 08:09 [place] % (Auto) 7.5 % (0.0-10.0) 09/03/18 08:09 Eos % (Auto) 0.2 % (0.0-4.0) 09/03/18 08:09 Baso % (Auto) 0.3 % (0.0-2.0) 09/03/18 08:09 Neut # (Auto) 11.8 K/uL (1.8-7.0) H 09/03/18 08:09 Lymph # (Auto) 1.9 K/uL (1.0-4.3) 09/03/18 08:09 [place] # (Auto) 1.1 K/uL (0.0-0.8) H 09/03/18 08:09 Eos # (Auto) 0.0 K/uL (0.0-0.7) 09/03/18 08:09 Baso # (Auto) 0.0 K/uL (0.0-0.2) 09/03/18 08:09 pO2 43 mm/Hg (30-55) 09/02/18 13:35 VBG pH 7.45 (7.32-7.43) H 09/02/18 13:35 VBG pCO2 32 mmHg (40-60) L 09/02/18 13:35 VBG HCO3 23.7 mmol/L 09/02/18 13:35 VBG Total CO2 23.2 mmol/L (22-28) 09/02/18 13:35 VBG O2 Sat (Calc) 85.5 % (40-65) H 09/02/18 13:35 VBG Base Excess -1.0 mmol/L (0.0-2.0) L 09/02/18 13:35 VBG Potassium 3.9 mmol/L (3.6-5.2) 09/02/18 13:35 Sodium 136.0 mmol/l (132-148) 09/02/18 13:35 Chloride 107.0 mmol/L (98-107) 09/02/18 13:35 Glucose 110 mg/dl (75-110) 09/02/18 13:35 Lactate 1.2 mmol/L (0.7-2.1) 09/02/18 13:35 Sodium 136 mmol/L (132-148) 09/03/18 08:09 Potassium 4.0 mmol/L (3.6-5.2) 09/03/18 08:09 Chloride 103 mmol/L (98-107) 09/03/18 08:09 Carbon Dioxide 24 mmol/L (22-30) 09/03/18 08:09 Anion Gap 13 (10-20) 09/03/18 08:09 BUN 16 mg/dL (9-20) 09/03/18 08:09 Creatinine 1.3 mg/dL (0.8-1.5) 09/03/18 08:09 Est GFR ( Amer) > 60 09/03/18 08:09 Est GFR (Non-Af Amer) > 60 09/03/18 08:09 Random Glucose 98 mg/dL (75-110) 09/03/18 08:09 Calcium 8.9 mg/dl (8.6-10.4) 09/03/18 08:09 Total Bilirubin 1.5 mg/dL (0.2-1.3) H 09/03/18 08:09 AST 67 U/L (17-59) H D 09/03/18 08:09 ALT 67 U/L (21-72) 09/03/18 08:09 Alkaline Phosphatase 72 U/L (38-126) 09/03/18 08:09 Total Protein 7.0 g/dL (6.3-8.3) 09/03/18 08:09 Albumin 3.9 g/dL (3.5-5.0) 09/03/18 08:09 Globulin 3.1 gm/dL (2.2-3.9) 09/03/18 08:09 Albumin/Globulin Ratio 1.3 (1.0-2.1) 09/03/18 08:09 Lipase 143 U/L (23-300) 09/02/18 07:10 Prostate Specific Ag 0.691 ng/mL (0.00-4.0) 09/03/18 08:09 Venous Blood Potassium 3.9 mmol/L (3.6-5.2) 09/02/18 13:35 Urine Color Yellow (YELLOW) 09/02/18 07:24 Urine Clarity Clear (Clear) 09/02/18 07:24 Urine pH 5.0 (5.0-8.0) 09/02/18 07:24 Ur Specific [place] 1.023 (1.003-1.030) 09/02/18 07:24 Urine Protein Negative mg/dL (NEGATIVE) 09/02/18 07:24 Urine Glucose (UA) Normal mg/dL (Normal) 09/02/18 07:24 Urine Ketones Negative mg/dL (NEGATIVE) 09/02/18 07:24 Urine Blood Negative (NEGATIVE) 09/02/18 07:24 Urine Nitrate Negative (NEGATIVE) 09/02/18 07:24 Urine Bilirubin Negative (NEGATIVE) 09/02/18 07:24 Urine Urobilinogen Normal mg/dL (0.2-1.0) 09/02/18 07:24 Ur Leukocyte Esterase Neg Viri/uL (Negative) 09/02/18 07:24 Urine WBC (Auto) 1 /hpf (0-5) 09/02/18 07:24 Urine RBC (Auto) < 1 /hpf (0-3) 09/02/18 07:24 - Hospital Course Hospital Course: Patient AOx3. The risks of leaving were explained to the patient and include, but are not limited to, worsening of known or currently unknown conditions, permanent disability and from undiagnosed or untreated conditions. Patient understood potential risks and chose to leave against medical advice regardless. Patient instructed to return to nearest ED should new or worsening symptoms occur Discharge Exam - Head Exam Head Exam: ATRAUMATIC, NORMOCEPHALIC Discharge Plan - Follow Up Plan Condition: STABLE Disposition: AGAINST MEDICAL ADVICE Instructions: Diverticulosis (DC)
[2018-09-04] MEDS ORDERED: Pneumococcal 23-Valent Vaccine IM ONE (10:00)
== END 2018-09-03 16:25 | disposition left against medical advice (07) ==
LOC: C.ER 06:54 → C.9E 13:09 → C.3T 14:10
PROVIDERS: ADMIT Internal Medicine Nephrology; ATTEND Internal Medicine Nephrology
DX: K57.90 Diverticulosis of intestine, part unspecified, without perforation or abscess without bleeding (principal); K59.00 Constipation, unspecified; E78.00 Pure hypercholesterolemia, unspecified; E78.5 Hyperlipidemia, unspecified; G89.29 Other chronic pain; M54.5 Low back pain
CPT/HCPCS: 36415; 72193; 74176; 76700; 80053; 81001; 82803; 83690; 84153; 85025; 87086; 96360; 96374; 99285; G0378; J1650; J1885; J2270; J2405; J2543; J7030; Q9967